=== PATIENT | female | born 2000 | race Hispanic/Latino ===

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

== ENCOUNTER 2023-03-08 17:48 | Emergency (ER) | payer SELFPAY ==
[~2023-03-08] VITALS: Ht 154.9 cm; Wt 88.2 kg
[~2023-03-08 17:48] MED LIST: AUGMENTIN875TAB PO
[2023-03-08] MEDS ORDERED: KEFLEX500 MG PO (19:36)
[2023-03-08 20:25] VITALS: BP 116/50
== END 2023-03-08 20:25 | disposition home or self-care (01) | DRG 605 ==
LOC: ED 17:48
PROC: 0HQDXZZ Repair Right Lower Arm Skin, External Approach (ICD-10-PCS; principal; 2023-03-08)
DX: S51.811A Laceration without foreign body of right forearm, initial encounter (principal); W22.09XA Striking against other stationary object, initial encounter; Y92.89 Other specified places as the place of occurrence of the external cause; Y99.0 Civilian activity done for income or pay